=== PATIENT | male | born 1980 | race Two or more races ===

== ENCOUNTER 2020-01-29 15:31 | Emergency (ER) | payer MEDICAID, OTHER ==
[~2020-01-29] VITALS: Ht 175.3 cm; Wt 72.6 kg
[2020-01-29 15:51] VITALS: BP 181/91
[2020-01-29 16:34] LABS: Basophils # (auto) 0.1 10 ^3/uL (0-0.2); Basophils % (auto) 0.5 % (0.0-2.0); Eosinophils # (auto) 0 10 ^3/uL (0-0.8); Eosinophils % (auto) 0.1 % (0.0-7.0); Hematocrit 43.4 % (41.0-53.0); Hemoglobin 14.7 g/dL (13.5-17.5); Lymphocytes # (auto) 1.1 10 ^3/uL (0.4-5.4); Lymphocytes % (auto) 8.3 % (10.0-50.0); Mean Corpuscular Hemoglobin 31.9 pg (28.0-32.0); Mean Corpuscular Hgb Conc. 33.9 g/dL (32.0-36.0); Mean Corpuscular Volume 94.2 fL (80.0-100.0); Monocytes # (auto) 0.4 10 ^3/uL (0-1.3); Monocytes % (auto) 3.2 % (0.0-12.0); Neutrophils # (auto) 11.5 10 ^3/uL (1.6-8.6); Neutrophils % (auto) 87.9 % (37.0-80.0); Nucleated Red Blood Cells % 0.1 %; Platelet Count (auto) 321 10^3/uL (140-450); Red Cell Distribution Width 12.8 % (11.8-14.3); White Blood Cell 13.1 10^3/uL (4.4-10.8)
[2020-01-29 16:56] LABS: Albumin 4.3 g/dL (3.4-5.0); Anion Gap 8 (5-15); Blood Urea Nitrogen 11 mg/dL (7-18); Calcium 9.1 mg/dL (8.5-10.1); Carbon Dioxide 24 mmol/L (21-32); Chloride 108 mmol/L (98-107); Glucose 117 mg/dL (74-106); Potassium 3.5 mmol/L (3.5-5.1); Sodium 140 mmol/L (136-145)
[2020-01-29 16:57] LABS: Urine Bacteria NONE SEEN /hpf (None Seen); Urine Blood Negative /uL (Negative); Urine Specific Gravity 1.027 (1.001-1.035); Urine WBC 2 /hpf (0 - 3)
[2020-01-29 16:59] LABS: Alcohol, Urine < 3.0 mg/dL (0-10); Cannabinoid Screen, Urine POSITIVE (NEGATIVE)
[2020-01-29 17:02] LABS: Alanine Aminotransferase 30 U/L (16-61); Alkaline Phosphatase 136 U/L (45-117); Aspartate Aminotransferase 18 U/L (15-37); BUN/Creatinine Ratio 13.6; Bilirubin, Total 0.4 mg/dL (0.2-1.0); GFR African American 138 mL/min; GFR Non-African American 114 mL/min; Total Protein 8.4 g/dL (6.4-8.2)
[2020-01-29 17:07] LABS: Amphetamine Screen, Urine NEGATIVE (NEGATIVE); Barbiturate Scree,Urine NEGATIVE (NEGATIVE); Benzodiazephine Screen, Urine NEGATIVE (NEGATIVE); Cocaine Screen, Urine NEGATIVE (NEGATIVE); Opiate Scree,Urine POSITIVE (NEGATIVE); Phencyclidine Screen, Urine NEGATIVE (NEGATIVE)
[2020-01-29] MEDS ORDERED: PANTOPRAZOLE 40 MG/10 ML VIAL INJ IV ONE (17:30)
[2020-01-29] MEDS ORDERED: SODIUM CHLORIDE 0.9% 1,000 ML IV ONE (17:30)
[2020-01-29] MEDS ORDERED: KETOROLAC TROMETH 30 MG/ML 1ML VIAL IV ONE (17:30)
[2020-01-29] MEDS ORDERED: ONDANSETRON ODT 4 MG TAB PO ONE (17:30)
== END 2020-01-29 18:13 | disposition left against medical advice (07) ==
LOC: ER 15:31
DX: F12.188 Cannabis abuse with other cannabis-induced disorder (principal); K29.60 Other gastritis without bleeding; R74.8 Abnormal levels of other serum enzymes; Z87.442 Personal history of urinary calculi
CPT/HCPCS: 36415; 74176; 80053; 80307; 81001; 84484; 85025; 96361; 96374; 96375; 99284; C9113; J1885; Q0162

== ENCOUNTER 2021-05-22 13:52 | Inpatient (IN) | payer MEDICAID ==
[~2021-05-22] VITALS: Ht 175.3 cm; Wt 65.7 kg
[2021-05-22] MEDS ORDERED: ONDANSETRON HCL 4 MG/2 ML VIAL IV ONE (16:45)
[2021-05-22] MEDS ORDERED: HYDROmorphone HCL 2 MG/ML VL IV ONE ×2 (16:45→18:45)
[2021-05-22] MEDS ORDERED: IBU600T PO (17:38)
[2021-05-22] MEDS ORDERED: ETOMIDATE (2MG/ML) 20ML VIAL IV ONE (18:00)
[2021-05-22] MEDS ORDERED: LORazepam 2MG/ML-1ML VIAL ONE (18:05)
[2021-05-22] MEDS ORDERED: HYDROmorphone HCL 2 MG/ML VL ONE (18:07)
[2021-05-22] MEDS ORDERED: LORazepam 2MG/ML-1ML VIAL IV ONE (18:45)
[2021-05-22] MEDS ORDERED: ACETAMINOPHEN 325 MG TAB PO PRN (20:45)
[2021-05-22] MEDS ORDERED: ONDANSETRON HCL 4 MG/2 ML VIAL IV PRN (20:45)
[2021-05-22] MEDS: HYDROcodone-ACET 5/325MG TAB PO PRN (21:16)
[2021-05-22] MEDS: MORPHINE SULFATE INJECTION 2 MG/ML SYRG IV PRN (23:14)
[2021-05-23] MEDS: TEMAZEPAM 15 MG CAP PO PRN (00:04)
[2021-05-23 00:33] LABS: Basophils # (auto) 0 10 ^3/uL (0-0.2); Basophils % (auto) 0.3 % (0.0-2.0); Eosinophils # (auto) 0.2 10 ^3/uL (0-0.8); Eosinophils % (auto) 2.1 % (0.0-7.0); Hemoglobin 11.8 g/dL (13.5-17.5); Monocytes # (auto) 0.9 10 ^3/uL (0-1.3)
[2021-05-23 00:36] LABS: Hematocrit 35.8 % (41.0-53.0); Lymphocytes # (auto) 2.3 10 ^3/uL (0.4-5.4); Lymphocytes % (auto) 25.7 % (10.0-50.0); Mean Corpuscular Hemoglobin 29.7 pg (28.0-32.0); Mean Corpuscular Hgb Conc. 33.1 g/dL (32.0-36.0); Mean Corpuscular Volume 89.8 fL (80.0-100.0); Monocytes % (auto) 10.6 % (0.0-12.0); Neutrophils # (auto) 5.4 10 ^3/uL (1.6-8.6); Neutrophils % (auto) 61.3 % (37.0-80.0); Nucleated Red Blood Cells % 0.2 %; Red Blood Cells 3.98 10^6/uL (4.5-5.90); Red Cell Distribution Width 13.2 % (11.8-14.3); White Blood Cell 8.9 10^3/uL (4.4-10.8)
[2021-05-23 00:48] LABS: BUN/Creatinine Ratio 9.7; Calcium 8.7 mg/dL (8.5-10.1); Potassium 3.4 mmol/L (3.5-5.1)
[2021-05-23 00:51] LABS: Bilirubin, Total 0.5 mg/dL (0.2-1.0); Total Protein 7.4 g/dL (6.4-8.2)
[2021-05-23 00:57] LABS: INR 1.06 (0.9-1.15); Partial Thromboplastin Time 27.5 sec (23.6-33.0)
[2021-05-23] MEDS ORDERED: POTASSIUM CHL 20 Meq TABLET PO ONE (03:15)
[2021-05-23] MEDS: MORPHINE SULFATE INJECTION 2 MG/ML SYRG IV PRN ×3 (04:16→13:39)
[2021-05-23] MEDS: HYDROcodone-ACET 5/325MG TAB PO PRN ×3 (07:49→16:09)
[2021-05-23 10:18] LABS: Potassium 3.9 mmol/L (3.5-5.1)
[2021-05-23 10:25] LABS: BUN/Creatinine Ratio 11.1
[2021-05-23 12:41] VITALS: BP 113/65
[2021-05-23 12:44] VITALS: BP 113/65
[2021-05-23 16:32] VITALS: BP 121/73
[2021-05-23] MEDS: MORPHINE SULFATE 4 MG/ML SYR/VIAL IV PRN ×2 (16:47→21:25)
[2021-05-23 22:00] VITALS: BP 119/78
[2021-05-23] MEDS: HYDROcodone-ACET 10/325MG TAB PO PRN (22:50)
[2021-05-23] MEDS ORDERED: HYDROmorphone HCL 2 MG/ML VL IV ONE (23:30)
[2021-05-24] MEDS: MORPHINE SULFATE 4 MG/ML SYR/VIAL IV PRN ×4 (01:27→20:41)
[2021-05-24] MEDS: HYDROcodone-ACET 10/325MG TAB PO PRN ×3 (02:55→22:22)
[2021-05-24 05:00] VITALS: BP 142/85
[2021-05-24] MEDS ORDERED: LIDOCAINE 1% HCL (LOCAL ANESTH.) INJ 20ML MDV ONE (08:00)
[2021-05-24] MEDS ORDERED: BUPIVACAINE 0.25% INJ 50ML VIAL ONE (08:00)
[2021-05-24] MEDS ORDERED: DOCUSATE SOD 100 MG CAP PO PRN (09:00)
[2021-05-24 09:06] VITALS: BP 127/57
[2021-05-24 10:05] LABS: Basophils # (auto) 0 10 ^3/uL (0-0.2); Basophils % (auto) 0.3 % (0.0-2.0); Eosinophils # (auto) 0.2 10 ^3/uL (0-0.8); Lymphocytes # (auto) 2.2 10 ^3/uL (0.4-5.4)
[2021-05-24 10:07] LABS: Eosinophils % (auto) 1.7 % (0.0-7.0); Hematocrit 37.4 % (41.0-53.0); Hemoglobin 12.3 g/dL (13.5-17.5); Lymphocytes % (auto) 20.5 % (10.0-50.0); Mean Corpuscular Hemoglobin 30.2 pg (28.0-32.0); Mean Corpuscular Volume 91.3 fL (80.0-100.0); Monocytes # (auto) 1.2 10 ^3/uL (0-1.3); Monocytes % (auto) 10.7 % (0.0-12.0); Neutrophils # (auto) 7.3 10 ^3/uL (1.6-8.6); Neutrophils % (auto) 66.8 % (37.0-80.0); Red Blood Cells 4.09 10^6/uL (4.5-5.90); Red Cell Distribution Width 13.6 % (11.8-14.3)
[2021-05-24 10:21] LABS: Potassium 3.7 mmol/L (3.5-5.1)
[2021-05-24 10:24] LABS: BUN/Creatinine Ratio 12.7
[2021-05-24 10:30] LABS: INR 1.06 (0.9-1.15); Partial Thromboplastin Time 28.8 sec (23.6-33.0)
[2021-05-24] MEDS ORDERED: ceFAZolin 1GM/50ML 100 ML IV ONE (11:06)
[2021-05-24] MEDS ORDERED: MIDAZOLAM HCL 2MG/2ML 2ml VIAL (1mg/ml) ONE (11:25)
[2021-05-24] MEDS ORDERED: fentaNYL CITRATE 100 MCG/2 ML VL ONE ×2 (11:25→12:15)
[2021-05-24] MEDS ORDERED: HYDROmorphone HCL 2 MG/ML VL ONE ×2 (11:25→14:53)
[2021-05-24] MEDS ORDERED: DexAMETHasone SOD PHOS 10MG/1ML VIAL INJ ONE (11:43)
[2021-05-24] MEDS ORDERED: PROPOFOL 10 MG/ML 20 ML IV ONE (11:44)
[2021-05-24] MEDS ORDERED: BUPIVACAINE HCL 50 ML ONE (12:15)
[2021-05-24] MEDS: HYDROmorphone HCL 2 MG/ML VL IV PRN ×3 (14:56→15:24)
[2021-05-24] MEDS ORDERED: ONDANSETRON HCL 4 MG/2 ML VIAL IV PRN (15:00)
[2021-05-24] MEDS ORDERED: MORPHINE SULFATE 4 MG/ML SYR/VIAL IV PRN (15:00)
[2021-05-24] MEDS ORDERED: LABETALOL HCL 5 MG/ML 4ML SYRINGE IV PRN (15:00)
[2021-05-24] MEDS ORDERED: MIDAZOLAM HCL 2MG/2ML 2ml VIAL (1mg/ml) IV PRN (15:00)
[2021-05-24] MEDS ORDERED: ePHEDrine SULFATE 50 MG/ML AMP IV PRN (15:00)
[2021-05-24 17:04] VITALS: BP 114/76
[2021-05-24] MEDS: LACTATED RINGER'S 1,000 ML IV SCH (18:30)
[2021-05-24] MEDS: ceFAZolin 1GM/50ML 50 ML IV SCH (20:41)
[2021-05-24] MEDS: TEMAZEPAM 15 MG CAP PO PRN (21:43)
[2021-05-24 22:00] VITALS: BP 125/77
[2021-05-25] MEDS: MORPHINE SULFATE 4 MG/ML SYR/VIAL IV PRN ×2 (00:59→05:02)
[2021-05-25] MEDS: HYDROcodone-ACET 10/325MG TAB PO PRN (02:18)
[2021-05-25 05:32] VITALS: BP 128/85
[2021-05-25] MEDS: LACTATED RINGER'S 1,000 ML IV SCH (06:56)
[2021-05-25] MEDS: ceFAZolin 1GM/50ML 50 ML IV SCH (06:56)
== END 2021-05-25 07:30 | disposition left against medical advice (07) | DRG 320 ==
LOC: ER 13:52 → EDBD 13:52 → OVERFLOW 20:36 → WEST WING 05-23 12:10
PROVIDERS: ADMIT Nurse Practitioner; ATTEND Internal Medicine
PROC: 0QSF04Z Reposition Left Patella with Internal Fixation Device, Open Approach (ICD-10-PCS; principal; 2021-05-24 11:38)
DX: S82.002A Unspecified fracture of left patella, initial encounter for closed fracture (principal); E87.6 Hypokalemia; Z20.822 Contact with and (suspected) exposure to COVID-19; W06.XXXA Fall from bed, initial encounter; Z53.29 Procedure and treatment not carried out because of patient's decision for other reasons; F12.90 Cannabis use, unspecified, uncomplicated; Z87.442 Personal history of urinary calculi; Y93.89 Activity, other specified; Y92.89 Other specified places as the place of occurrence of the external cause; Y99.8 Other external cause status
CPT/HCPCS: 27560; 36415; 71045; 73560; 76000; 80048; 80053; 85025; 85610; 85730; 86850; 86900; 86901; 87426; 96374; 96375; 96376; 99152; G0378; J0690; J1100; J2001; J2250; J2405; J2704; J3490